=== PATIENT | female | born 1960 | race American Indian/Alaskan Native ===

== ENCOUNTER 2017-02-13 11:13 | Outpatient (CLI) | payer MEDICARE, OTHER ==
--- NOTE | 2017-02-13 16:06 | Fluoroscopy Report ---
FLUOROSCOPY UPPER GI WITH KUB INDICATION: Abdominal pain. COMPARISON: None similar at this institution. FINDINGS: Upper GI exam performed utilizing thick and thin barium. Patient drank oral contrast without any difficulty. Security Public Safety Officer radiograph demonstrates a lap band in satisfactory appearance with a long connecting tubing leading to the port in the left lower quadrant. Few pelvic vascular calcifications. Few initial swallows demonstrate normal esophageal caliber with prompt passage of contrast beyond the lap band into the stomach. However, subsequent swallows gradually progressively distend the esophagus up to the lap band with slow passage through it and beyond noted. No contrast visualized in the duodenum upto 10 minutes after initial ingestion with esophagus moderately dilated. CONCLUSION: Dilated esophagus with possibly tight lap band in place, as described. Please correlate. Thank you for the opportunity to participate in this patient's care.
== END 2017-02-13 11:14 | disposition home or self-care (01) ==
LOC: FLUORO 11:13
PROVIDERS: ATTEND Specialist
DX: K22.8 Other specified diseases of esophagus (principal)
CPT/HCPCS: 74241

== ENCOUNTER 2018-04-07 07:54 | Day surgery (SDC) | payer MEDICARE, OTHER ==
[~2018-04-07 07:54] MED LIST: NACL 0.9% 1000 ML 1,000 ML IV SCH
[2018-04-07] MEDS ORDERED: DIPRIVAN 10 MG/ML IV ONE (10:02)
--- NOTE | 2018-04-07 10:29 | Anesthesia Consultation ---
Anesthesia Consult and Med Hx Date of service: 04/07/18 - Airway Anesthetic Teeth Evaluation: Partials (upper/lower) ROM Head & Neck: Adequate Mental/Hyoid Distance: Adequate Mallampati Class: Class I Intubation Access Assessment: Good - Pulmonary Exam CTA: Yes - Cardiac Exam Cardiac Exam: RRR - Pre-Operative Health Status ASA Pre-Surgery Classification: ASA3 - Pulmonary Hx Sleep Apnea: Yes (CPAP) - Cardiovascular System Hx Hypertension: Yes - Central Nervous System Hx Back Pain: Yes - Gastrointestinal Hx Gastroesophageal Reflux Disease: Yes - Other Systems Hx Obesity: Yes
--- NOTE | 2018-04-07 10:30 | Anesthesia Day of Surgery ---
Anesthesia Day of Surgery - Day of Surgery Patient Examined: Yes Patient H&P Reviewed: Yes Patient is NPO: Yes
[2018-04-07] MEDS ORDERED: HURRICAINE ONE 20% TOPICAL SPRAY MM ×2 (11:41→12:00)
[2018-04-07] MEDS ORDERED: WATER FOR IRRIG STERILE IR ONE (11:41)
--- NOTE | 2018-04-07 12:22 | Operative Report ---
Operative Report Operative Report: OPERATIVE REPORT - EGD and biopsy DATE 04/07/18 SURGERY: Upper endoscopy with biopsy SURGEON: ECHO TECH: Pricilla Alicea DO PRE OP DX: hx of gastric band POST OP DX: irregular GE junction, gastric polyp TYPE OF ANESTHESIA: MAC. ESTIMATED BLOOD LOSS: None. COMPLICATIONS: None. SPECIMENS REMOVED: biopsy of gastric polyp and GE junction FINDINGS: 1. Normal band. No erosions or ulcers 2. Irregular border of GE junction - biopsy 3. Polyp in the cardia of the stomach- biopsy INDICATIONS:INDICATION FOR PROCEDURE: Patient is a 58-year-old female with a long history of morbid obesity. She had a lap gastric band placed previously but now has dyspepsia. PROCEDURE DETAILS: After consent was reviewed, patient was taken back to the operating room where patient was placed in the left lateral decubitus position and a bite block was placed in the mouth. After a time-out was called, MAC anesthesia was initiated. I then passed the endoscope into her oropharynx, into her esophagus, visualized the entire esophagus. I noted irregular border of the GE junction. A biopsy was performed in this area. I then visualized the stomach and the first portion of the duodenum and there were no abnormalities I could clearly visualize. However when I retroflexed into the stomach a polyp was seen in the cardia fo the stomach. The polyp was biopsied. I also visualized the hiatus and I could see the gastric band. No erosion or slip were noted . I then desufflated the stomach and removed the endoscope. Patient tolerated procedure well and was transferred to recovery room in good and stable condition.
--- NOTE | 2018-04-07 12:24 | Discharge Summary ---
Providers - Providers Attending physician: ENDER ARTIS Primary care physician: LUGGAGE MAKER Hospitalization Procedures: egd Hospital course: Pt presented to endoscopy for EGD She tolerated the procedure well. She was discharged home the same day. Disposition: - TO HOME OR SELFCARE Core Measure Documentation - Palliative Care Palliative Care/ Comfort Measures: Not Applicable - Core Measures Any of the following diagnoses?: none Exam - Physical Exam Narrative exam: no change from prior - Constitutional Vitals: Temp Pulse Resp BP Pulse Ox 97.7 F 72 16 158/79 100 04/07/18 09:58 04/07/18 09:58 04/07/18 09:58 04/07/18 09:58 04/07/18 09:58 Plan Follow up with: EDUARDO RIVAS MD [Primary Care Provider] - 7 Days
[2018-04-07 14:35] VITALS: BP 143/88
[2018-04-07] MEDS ORDERED: HURRICAINE ONE 20% TOPICAL SPRAY MM NR (15:00)
== END 2018-04-07 07:55 | disposition home or self-care (01) ==
LOC: GIO 07:54
PROVIDERS: ATTEND Specialist
DX: K21.9 Gastro-esophageal reflux disease without esophagitis (principal); K22.8 Other specified diseases of esophagus; K29.50 Unspecified chronic gastritis without bleeding; I51.89 Other ill-defined heart diseases; G47.30 Sleep apnea, unspecified; I11.0 Hypertensive heart disease with heart failure; I50.9 Heart failure, unspecified; E05.90 Thyrotoxicosis, unspecified without thyrotoxic crisis or storm; E66.01 Morbid (severe) obesity due to excess calories; Z98.84 Bariatric surgery status; Z99.89 Dependence on other enabling machines and devices; Z98.51 Tubal ligation status; Z90.710 Acquired absence of both cervix and uterus; Z68.35 Body mass index [BMI] 35.0-35.9, adult
CPT/HCPCS: 43239; 88305; 88342; J2704; J7030